=== PATIENT | female | born 1965 | race Caucasian/White ===

== ENCOUNTER → 2017-10-27 | Outpatient (CLI) | payer SELFPAY ==
[~2017-10-27] MED LIST: LISINOPRIL20 MG PO; Motrin,Rufen800 MG PO; VITAMIN D-32000 UNIT PO
== END | disposition home or self-care (01) ==
LOC: RAD 12:17
DX: J90 Pleural effusion, not elsewhere classified (principal); J98.11 Atelectasis

== ENCOUNTER 2019-02-16 12:46 | Emergency (ER) | payer SELFPAY ==
[~2019-02-16] VITALS: Ht 167.6 cm; Wt 50.3 kg
[2019-02-16 13:42] LABS: MEAN CELL VOLUME 79.7 fl (81.0-99.0); MEAN CORPUSCULAR HGB 22.2 pg (27.0-31.0); MEAN CORPUSCULAR HGB CONC 27.9 g/dl (33.0-37.0); MEAN PLATELET VOLUME 8.7 fl (9.6-12.3); PLATELET COUNT AUTOMATED 500 10*3/uL (130-400); RED BLOOD COUNT 2.61 10*6/uL (4.10-5.10); RED CELL DISTRI WIDTH 16.9 % (0-14.5); WHITE BLOOD COUNT 11.1 10*3/uL (4.8-10.8)
[2019-02-16 13:46] LABS: HEMOGLOBIN 5.8 g/dl (12.0-16.0)
[2019-02-16 13:47] LABS: HEMATOCRIT 20.8 % (37.0-47.0)
[2019-02-16 13:51] LABS: ALBUMIN 2.8 gm/dl (3.1-4.5); ALKALINE PHOSPHATASE 94 U/L (45-117); BUN 13 mg/dl (7-24); CHLORIDE 94 mmol/L (98-107); CREATININE 0.89 mg/dL (0.55-1.02); POTASSIUM 3.2 mmol/L (3.5-5.1); SGOT/AST 10 IU/L (3-35); SGPT/ALT 6 U/L (12-78); SODIUM 128 mmol/L (136-145)
[2019-02-16 14:17] LABS: PLATELET SUFFICIENCY NORMAL (NORMAL); TOTAL CELLS COUNTED 100 #CELLS
[2019-02-16 14:18] LABS: MICROCYTOSIS SLIGHT
[2019-02-16 17:02] LABS: CLARITY CLOUDY (CLEAR); COLOR RED (YELLOW); LEUKO ESTERASE 1+ (NEGATIVE); NITRITE NEGATIVE (NEGATIVE)
[2019-02-16 17:03] LABS: BLOOD 3+ (NEGATIVE); SPECIFIC GRAVITY 1.015 (1.005-1.030); UROBILINOGEN 0.2 E.U./dl (0.2-1.0)
[2019-02-16 17:04] LABS: BILIRUBIN NEGATIVE (NEGATIVE); GLUCOSE TRACE (NEGATIVE); KETONE NEGATIVE (NEGATIVE); RBC TNTC rbc/hpf (0-2); WBC 41-50 wbc/hpf (0-5)
[2019-02-16 17:05] LABS: MUCOUS 1+
[2019-02-16 17:21] LABS: INTERNATIONAL NORM RATIO 1.1 (2.0-3.5)
[2019-02-16 18:44] LABS: MEAN CELL VOLUME 77.6 fl (81.0-99.0); MEAN CORPUSCULAR HGB 23.8 pg (27.0-31.0); MEAN CORPUSCULAR HGB CONC 30.6 g/dl (33.0-37.0); MEAN PLATELET VOLUME 8.7 fl (9.6-12.3); RED BLOOD COUNT 2.23 10*6/uL (4.10-5.10); RED CELL DISTRI WIDTH 17.3 % (0-14.5); WHITE BLOOD COUNT 4.8 10*3/uL (4.8-10.8)
[2019-02-16 18:48] LABS: HEMATOCRIT 17.3 % (37.0-47.0); HEMOGLOBIN 5.3 g/dl (12.0-16.0); PLATELET COUNT AUTOMATED 216 10*3/uL (130-400)
[2019-02-16 19:04] LABS: PLATELET SUFFICIENCY NORMAL (NORMAL); TOTAL CELLS COUNTED 100 #CELLS
[2019-02-16 19:05] LABS: OVALOCYTES FEW; POLYCHROMASIA SLIGHT
== END 2019-02-16 21:18 | disposition short-term general hospital (02) ==
LOC: ED 12:46
PROVIDERS: Emergency Medicine
DX: N28.89 Other specified disorders of kidney and ureter (principal); C64.9 Malignant neoplasm of unspecified kidney, except renal pelvis; R71.0 Precipitous drop in hematocrit; R31.9 Hematuria, unspecified; R42 Dizziness and giddiness; R11.2 Nausea with vomiting, unspecified; I10 Essential (primary) hypertension; Z88.8 Allergy status to other drugs, medicaments and biological substances